=== PATIENT | female | born 1990 | race Caucasian/White ===

== ENCOUNTER 2025-02-18 11:42 | Emergency (ER) | payer BC ==
[~2025-02-18] VITALS: Ht 162.6 cm; Wt 52.8 kg
[2025-02-18 11:46] VITALS: BP 159/99; PULSE 75; RESP 16; TEMP 98; O2SAT 95
[2025-02-18 12:09] LABS: BILIRUBIN,URINE NEGATIVE (Neg); CLARITY,URINE CLEAR (Clear); COLOR,URINE YELLOW (Yellow); GLUCOSE, URINE NEGATIVE (Neg); KETONES,URINE NEGATIVE (Neg); LEUKOCYTE ESTERASE ,URINE NEGATIVE (Neg); NITRITES, URINE NEGATIVE (Neg); OCCULT BLOOD,URINE NEGATIVE (Neg); PH,URINE 6.5 (4.8-8.0); PROTEIN,URINE NEGATIVE (Neg); UROBILINOGEN,URINE 0.2 E.U/dL (0.2-1.0)
[2025-02-18 12:14] LABS: URINE HCG NEGATIVE (NEG)
[2025-02-18 12:22] LABS: UA COLLECTION TYPE CLN CATCH MIDSTREAM
--- NOTE | 2025-02-18 12:43 | RADIOLOGY REPORT ---
INDICATION: Neck and Back Pain, Fall from 7 foot ladder COMPARISON: None TECHNIQUE: 3 views of the lumbar, cervical, thoracic spine were obtained. FINDINGS: The lumbar vertebral alignment is normal. The intervertebral disc spaces are well-maintained. No significant facet arthropathy is noted. No acute fracture, vertebral compression deformity or aggressive osseous lesions. The paravertebral soft tissues are grossly unremarkable. IMPRESSION: No acute fracture or subluxation.
--- NOTE | 2025-02-18 12:49 | Physician Documentation ---
History of Present Illness ~ Chief Complaint: Mechanical Fall Stated Complaint: FELL OFF OF LADDER YESTERDAY Time Seen by MD: 12:39 Primary Medical Doctor: GHADA SWEET 34-year-old female presenting after a fall off a ladder that occurred yesterday. Patient was on a ladder and fell backwards about seven feet hitting the back of her head and her back on the ground. She states that she was little bit confused afterwards but felt otherwise fine. Today she started being very nauseous and did vomit on one occasion. She also complains of neck pain and lower back pain. She is otherwise healthy with no other issues. Denies any loss of consciousness, numbness, tingling or any other associated symptoms. Tetanus within 5 Years?: No Medication Reconciliation Allergies: Coded Allergies: No Known Allergies (Unverified , 12/13/13) Past Medical History Past Medical History: No Pertinent History Past Surgical History: no surgical history Lives with: Family Lives In: Home Occupation: employed Review of Systems All Other Systems at this time: Reviewed and Negative Physical Exam Vital Signs: Temperature: 98.0, Source: Temporal, Heart Rate: 75, Respiratory Rate: 16, BP: 159/99, Pulse Oximetry: 95, Weight: 52.800 Oxygen Flow Rate: 0 Physical Exam I have reviewed the triage vitals. CONST: Well developed and well nourished. In no acute distress HENT: Head Atraumatic. Tenderness to palpation over the occiput EYES: Pupils are equal, round and reactive to light. Normal conjunctiva NECK: Normal range of motion. Supple. There is tenderness to palpation over the cervical vertebrae and paraspinal muscles. CARDIO: Normal rate and regular rhythm. No murmurs, rubs, or gallops. S1, S2. PULM/CHEST: No respiratory distress. Lungs clear to auscultation. No wheeze ABD: Soft and nontender. Nondistended. Bowel sounds normal. No guarding. : Exam deferred MSK: No edema. No deformity. Normal gait. There is tenderness to palpation over the lumbar vertebrae and paraspinal muscles. There is pain with range of motion of the lumbar spine. NEURO: Alert and oriented to person, place and time. Moving all extremities. No rmal coordination. Normal sensation bilaterally. Cranial nerves 2-12 are normal. SKIN: Warm and dry. PSYCH: Normal mood and affect. Good eye contact. Progress Results/Orders Results/Orders Completed Orders - LANE HAND MD Ibuprofen Tablet (Motrin Tablet) (02/18/25 12:45) Ondansetron Disint. Tablet (Zofran Odt T (02/18/25 12:45) Medications Received in ER Medications (Trade) Dose Ordered Sig/James Route PRN Reason Start Time Stop Time Status Last Admin Dose Admin (Motrin tablet) 800 mg ONCE ONCE PO 02/18/25 12:45 02/18/25 12:46 DC 02/18/25 13:16 800 MG (Zofran ODT tablet) 4 mg ONCE ONCE PO 02/18/25 12:45 02/18/25 12:46 DC 02/18/25 13:16 4 MG Vital Signs 02/18/25 11:46 Temp 98.0 Pulse 75 Resp 16 B/P (MAP) 159/99 Pulse Ox 95 O2 Flow Rate 0 Laboratory Tests Test 02/18/25 12:00 Urine Specimen Description Cln catch midstream Urine Color Yellow Urine Clarity Clear Urine pH 6.5 Urine Specific Jackson 1.015 Urine Protein Negative Urine Glucose (UA) Negative Urine Ketones Negative Urine Occult Blood Negative Urine Nitrite Negative Urine Bilirubin Negative Urine Urobilinogen 0.2 Urine Leukocyte Esterase Negative Urine Culture Indicated Not ind Volume Urine Centrifuged 10 ml Urine HCG, Qualitative Negative Urine Comment EKG/XRAY/CT/US/VASC/MRI CT : Impression EXAM: CT CT HEAD HISTORY: Fall from 7 feet w/headstrike COMPARISON: None TECHNIQUE: Noncontrast axial CT images of the head were performed. Sagittal and coronal reformatted images were obtained. This CT exam was performed using 1 or more of the following dose reduction techniques: Automated exposure control, adjustment of the mA and/or kv according to patient size, or the use of iterative reconstruction techniques. Radiation Dose: CTDI volume is 60.3 mGy. Dose-length product is 1104.07 mGy*cm FINDINGS: No intracranial hemorrhage, mass, midline shift, hydrocephalus, or evidence of acute large vessel infarct. The partially-visualized paranasal sinuses are clear. The bilateral mastoid air cells and middle ear spaces are clear. No cranial fracture or scalp edema. IMPRESSION: No acute intracranial process. CATION: Neck and Back Pain, Fall from 7 foot ladder COMPARISON: None TECHNIQUE: 3 views of the lumbar, cervical, thoracic spine were obtained. FINDINGS: The lumbar vertebral alignment is normal. The intervertebral disc spaces are well-maintained. No significant facet arthropathy is noted. No acute fracture, vertebral compression deformity or aggressive osseous lesions. The paravertebral soft tissues are grossly unremarkable. IMPRESSION: No acute fracture or subluxation. CATION: Neck and Back Pain, Fall from 7 foot ladder COMPARISON: None TECHNIQUE: 3 views of the lumbar, cervical, thoracic spine were obtained. FINDINGS: The lumbar vertebral alignment is normal. The intervertebral disc spaces are well-maintained. No significant facet arthropathy is noted. No acute fracture, vertebral compression deformity or aggressive osseous lesions. The paravertebral soft tissues are grossly unremarkable. IMPRESSION: No acute fracture or subluxation. Departure Disposition: 01 HOME / SELF CARE / HOMELESS Impression: Primary Impression: Post concussion syndrome Additional Impressions: Lumbar contusion Cervical strain Condition: Improved Discharge Instructions: Cervical Sprain, [id number], Concussion, Adult Additional Instructions: You likely sustained a concussion. Concussion symptoms can last from several days to sometimes several months. You may experience symptoms such as and continued nausea, occasional vomiting, dizziness, foggy thinking and altered mood. Please get plenty of rest and drink as much fluids as possible. Symptoms usually resolve within 1-2 weeks. If symptoms worsen at any point please return to the emergency department. You also sustained a bruise of your lower back as well as a strain of your neck. You may take ibuprofen or Tylenol as needed for pain. These symptoms should resolve as well over the course of the next several weeks. I will prescribe her Zofran for any nausea and you may take this as needed. I also recommend [id number] ibuprofen or Tylenol. Please follow up with her primary care physician within the next week. Return to the ER with any acutely worsening symptoms. Referrals: NO PRIMARY CARE PROVIDER (PCP) Prescriptions Ibuprofen (Ibuprofen) 600 Mg Tablet 1 TAB PO Q8H for pain for 10 Days, #30 TAB 0 Refills with food Prov: LANE HAND MD 02/18/25 ONDANSETRON ODT 4mg tablet (ONDANSETRON ODT) 4 Mg Tab.rapdis 1 TAB PO Q6H PRN PRN for nausea/vomiting for 4 Days, #16 TAB 0 Refills Prov: LANE HAND MD 02/18/[address] HAND MD Feb 18, 2025 12:49
--- NOTE | 2025-02-18 13:03 | RADIOLOGY REPORT ---
EXAM: CT CT HEAD HISTORY: Fall from 7 feet w/headstrike COMPARISON: None TECHNIQUE: Noncontrast axial CT images of the head were performed. Sagittal and coronal reformatted i mages were obtained. This CT exam was performed using 1 or more of the following dose reduction techn iques: Automated exposure control, adjustment of the mA and/or kv according to patient size, or the u se of iterative reconstruction techniques. Radiation Dose: CTDI volume is 60.3 mGy. Dose-length product is 1104.07 mGy*cm FINDINGS: No intracranial hemorrhage, mass, midline shift, hydrocephalus, or evidence of acute large vessel inf arct. The partially-visualized paranasal sinuses are clear. The bilateral mastoid air cells and middl e ear spaces are clear. No cranial fracture or scalp edema. IMPRESSION: No acute intracranial process.
[2025-02-18] MEDS: ondansetron 4mg rapidly disintigrating tab PO ONE (13:16)
[2025-02-18] MEDS: ibuprofen tablet 400 MG TABLET PO ONE (13:16)
[2025-02-18] MEDS ORDERED: IBUP-1985 PO (13:29)
[2025-02-18] MEDS ORDERED: ONDA-243 PO (13:29)
== END 2025-02-18 13:40 | disposition home or self-care (01) ==
LOC: ER 11:42
DX: S16.1XXA Strain of muscle, fascia and tendon at neck level, initial encounter (principal); S30.0XXA Contusion of lower back and pelvis, initial encounter; F07.81 Postconcussional syndrome; W11.XXXA Fall on and from ladder, initial encounter; Y93.89 Activity, other specified; Y92.89 Other specified places as the place of occurrence of the external cause; Y99.8 Other external cause status
CPT/HCPCS: 70450; 72040; 72074; 72100; 81003; 81025; 99284

== ENCOUNTER 2025-02-21 12:30 | Emergency (ER) | payer BC ==
[~2025-02-21] VITALS: Ht 162.6 cm; Wt 53.6 kg
[~2025-02-21 12:30] MED LIST: IBUP-1985 PO; ONDA-243 PO
[2025-02-21 12:45] VITALS: BP 121/81; PULSE 70; RESP 18; TEMP 98.3; O2SAT 100
--- NOTE | 2025-02-21 13:01 | Physician Documentation ---
History of Present Illness ~ Chief Complaint: Headache Stated Complaint: HEAD PAIN Time Seen by MD: 12:54 Primary Medical Doctor: GHADA [facility] This is a 34-year-old female who presents back to the emergency department with continued headache, nausea, and light sensitivity after sustaining a concussion several days ago, patient is requesting a work note for the next few days to continue her recovery from concussion. Reports no new symptoms and no other acute symptoms or concerns. Patient reports no persistent vomiting vision changes, or confusion. Medication Reconciliation Allergies: Coded Allergies: No Known Allergies (Unverified , 12/13/13) Scheduled Ibuprofen (Ibuprofen), 1 TAB PO Q8H Scheduled PRN ONDANSETRON ODT 4mg tablet (Ondansetron Odt), 1 TAB PO Q6H PRN PRN for nausea/vomiting Past Medical History Past Medical History: No Pertinent History Past Surgical History: no surgical history Lives with: Family Lives In: Home Occupation: employed Review of Systems ROS Headache and nausea as stated above in the HPI, otherwise all systems are reviewed and negative. Physical Exam Vital Signs: Temperature: 98.3, Heart Rate: 70, Respiratory Rate: 18, BP: 121/81, Pulse Oximetry: 100, Weight: 53.640 Oxygen Flow Rate: 0 Physical Exam VITALS: Reviewed and as above. GENERAL: Alert and oriented x4, GCS 15, nontoxic appearing, no apparent distress. HEENT: PERRLA EOMI RESPIRATORY: No increased work of breathing, no respiratory distress, speaking in full clear sentences Progress Results/Orders Results/Orders Vital Signs 02/21/25 12:45 Temp 98.3 Pulse 70 Resp 18 B/P (MAP) 121/81 Pulse Ox 100 O2 Flow Rate 0 Medical Decision Making Findings This is a 34 female who was previously diagnosed with concussion after falling off a 7 ft ladder, patient was to return to work though is still experiencing postconcussion symptoms including headache, light sensitivity and nausea and patient reports he does not feel well enough to return to work which would include climbing on ladders. Patient is otherwise well-appearing and reporting no new symptoms, reassuringly patient has not had behavioral changes or persistent vomiting to indicate serious sequela of head injury. Remainder of p hysical exam benign and patient had stable vital signs in the department. Patient is appropriate for outpatient follow up. Patient to be provided work note and taken off work for the next two days and able to return to work after the weekend. Differential Dx:Considerations: Include: RIVER-Cluster, RIVER-Migraine, RIVER- Hypertensive, RIVER-Muscular contraction, RIVER-Post lumbar puncture, Close head injuyr, CVA, Fever induced, Mass lesion, Meningitis, Pseudotumor cerebri, Sinusitis, Temporal arteritis Departure Disposition: HOME / SELF CARE / HOMELESS Impression: Primary Impression: Postconcussion syndrome Condition: Improved Discharge Instructions: Post Concussion Syndrome,Adult Departure Forms: Excuse form Work or School Excused From: Work Excuse beginning now through the following date: Feb 25, 2025 Referrals: NO PRIMARY CARE PROVIDER (PCP) Education Educated: Patient Educated regarding: diagnosis, treatment, prognosis, need for follow up Signature Scribe Signature: No scribe Attestation: The note accurately reflects work and decisions made by me.JORDYN Bermudez 02/21/25 20:49 ANGELICA SEGURA Feb 21, 2025 13:01
== END 2025-02-21 13:10 | disposition home or self-care (01) ==
LOC: ER 12:31
DX: R51.9 Headache, unspecified (principal); F07.81 Postconcussional syndrome; R11.0 Nausea; X58.XXXA Exposure to other specified factors, initial encounter; Y93.89 Activity, other specified; Y92.89 Other specified places as the place of occurrence of the external cause; Y99.8 Other external cause status
CPT/HCPCS: 99284